=== PATIENT | male | born 1950 | race American Indian/Alaskan Native ===

== ENCOUNTER 2017-05-22 17:47 | Emergency (ER) | payer MEDICARE ==
--- NOTE | 2017-05-22 17:56 | Emergency Department Report ---
Chief Complaint: Altered Mental Status Stated Complaint: AMS Time Seen by Provider: 05/22/17 17:51 - HPI History of Present Illness: PT's was at home with pt and she got called to work around 2 pm and she states that when she returned home at 4 pm, the pt was confused. - ROS Review of Systems: pt denies pain - Exam Physical Exam: PT is alert speech slurred MSE screening note: Focused history and physical exam performed. Due to findings the following was ordered: ct, ekg, labs ED Disposition for MSE Condition: Stable
[2017-05-22 18:16] LABS: Basophils % (Auto) 0.3 % (0.0-1.8); Eosinophils % (Auto) 0.1 % (0.0-4.3); Hematocrit 35.8 % (35.5-45.6); Hemoglobin 12.7 gm/dl (11.8-15.2); Mean Corpuscular HGB Conc 35 % (32-34); Mean Corpuscular Hemoglobin 33 pg (28-32); Mean Corpuscular Volume 92 fl (84-94); Platelet Count 110 K/mm3 (140-440); Red Blood Count 3.87 M/mm3 (3.65-5.03); White Blood Count 9.6 K/mm3 (4.5-11.0)
[2017-05-22 18:26] LABS: INR 0.9 (0.87-1.13)
[2017-05-22 18:27] LABS: Partial Thromboplastin Time 24.2 Sec. (24.2-36.6)
--- NOTE | 2017-05-22 18:28 | Cat Scan Report ---
FINAL REPORT PROCEDURE: CT HEAD/BRAIN WO CON TECHNIQUE: Computerized tomography of the head was performed without contrast material. HISTORY: Stroke symptoms COMPARISON: No prior studies are available for comparison. FINDINGS: There is a large acute left subdural hemorrhage extending along the left frontal, parietal, temporal regions, also extending along the anterior falx and left tentorium. Hemorrhage measures up to 2.7 centimeters in thickness. There is 6 millimeters [id number] midline shift. There is mass effect on the left lateral ventricle. The basilar cisterns are preserved. There may be trace amount of subarachnoid hemorrhage in the left parietotemporal region Stack-white matter interface is preserved. No parenchymal hemorrhage is seen. The intracranial arteries are symmetric in density. No acute fracture is visualized. The paranasal sinuses and mastoids are aerated. IMPRESSION: Large left subdural hemorrhage with mass effect. Findings were discussed by telephone with Dr. Murcia at 5:19 p.m. central standard time on 05/22/2017.
--- NOTE | 2017-05-22 18:42 | Emergency Department Report ---
ED Neuro Deficit HPI - General Chief Complaint: Neuro Symptoms/Deficit Stated Complaint: AMS Time Seen by Provider: 05/22/17 17:51 Source: patient, family Mode of arrival: Ambulatory Limitations: Physical Limitation - History of Present Illness -: hour(s) (4) Location: speech, ataxia Presenting Symptoms: Present: Unable to Speak Clearly, Altered Mental Status History of same: No Place: home Severity: severe Quality: other (wrestling) Improves With: none On Anticoagulants: No (but takes aspirin daily) Context: gradual onset Associated Symptoms: denies other symptoms Treatments Prior to Arrival: none - Related Data Allergies/Adverse Reactions: Allergies Allergy/AdvReac Type Severity Reaction Status Date / Time No Known Allergies Allergy Unverified 05/22/17 17:50 ED Review of Systems ROS: Stated complaint: AMS Other details as noted in HPI Comment: All other systems reviewed and negative Constitutional: weakness Neurological: weakness Hematological/Lymphatic: as per HPI ED Past Medical Hx - Past Medical History Previous Medical History?: Yes Hx Hypertension: Yes Hx Diabetes: Yes Hx Arthritis: Yes - Surgical History Past Surgical History?: Yes Additional Surgical History: Right inquinal hernia repair - Social History Smoking Status: Never Smoker Substance Use Type: Alcohol, Prescribed ED Neuro Physical Exam - General Limitations: Physical Limitation General appearance: lethargic Suspected Stroke: Yes - Head Head exam: Present: atraumatic, normocephalic - Eye Eye exam: Present: normal appearance - ENT ENT exam: Present: normal exam, normal orophraynx - Neck Neck exam: Present: normal inspection - Respiratory Respiratory exam: Present: normal lung sounds bilaterally - Cardiovascular Cardiovascular Exam: Present: regular rate, normal rhythm - GI/Abdominal GI/Abdominal exam: Present: soft - Rectal Rectal exam: Present: deferred - Extremities Exam Extremities exam: Present: normal inspection - Back Exam Back exam: Present: normal inspection - Neurological Exam Neurological exam: Present: alert - NIHSS Assessment Interval: Baseline 1a. Level of Consciousness: alert 1b. LOC Questions: answers correctly 1c. LOC Commands: performs tasks correctly 2. Best Gaze: normal 3. Visual: no visual loss 4. Facial Palsy: normal symmetrical movement 5b. Motor Arm Right: no drift 5a. Motor Arm Left: no drift 6a. Motor Leg Left: no drift 6b. Motor Leg Right: no drift 7. Limb Ataxia: present 2 limbs 8. Sensory: mild/moderate sensory loss 9. Best Language: mild/moderate aphasia 10. Dysarthria: mild/moderate dysarthria 11. Extinction/Inattention: visual/tactile inattention Total Score: 6 Stroke Severity: Moderate Stroke - Psychiatric Psychiatric exam: Present: normal affect, normal mood - Skin Skin exam: Present: warm, dry, intact ED Course Vital Signs 05/22/17 05/22/17 05/22/17 17:50 18:17 18:34 Temperature 99.3 F 99.7 F H Pulse Rate 86 94 H 84 Respiratory 20 13 Rate Blood Pressure 169/104 Blood Pressure 139/83 [Left] O2 Sat by Pulse 100 98 Oximetry - Reevaluation(s) Reevaluation #1: 05/22/17 19:12 Patient remained stable in the ER was accepted at [place] by Dr. Wilkerson. Patient is stable for transfer. Transfer consent obtained from patient's which remained at bedside throughout this hospitalization. - Lab Data Result diagrams: 05/22/17 18:03 05/22/17 18:03 Lab Results 05/22/17 05/22/17 05/22/17 Range/Units 17:53 18:03 18:03 WBC 9.6 (4.5-11.0) K/mm3 RBC 3.87 (3.65-5.03) M/mm3 Hgb 12.7 (11.8-15.2) gm/dl Hct 35.8 (35.5-45.6) % MCV 92 (84-94) fl MCH 33 H (28-32) pg MCHC 35 H (32-34) % RDW 16.0 H (13.2-15.2) % Plt Count 110 L (140-440) K/mm3 Lymph % (Auto) 11.7 L (13.4-35.0) % [place] % (Auto) 6.1 (0.0-7.3) % Eos % (Auto) 0.1 (0.0-4.3) % Baso % (Auto) 0.3 (0.0-1.8) % Lymph # 1.1 L (1.2-5.4) K/mm3 [place] # 0.6 (0.0-0.8) K/mm3 Eos # 0.0 (0.0-0.4) K/mm3 Baso # 0.0 (0.0-0.1) K/mm3 Seg Neutrophils % 81.8 H (40.0-70.0) % Seg Neutrophils # 7.9 H (1.8-7.7) K/mm3 PT 12.1 L (12.2-14.9) Sec. INR 0.90 (0.87-1.13) APTT 24.2 (24.2-36.6) Sec. Thrombin Time 14.8 L (15.1-19.6) Sec. Carbon Dioxide (22-30) mmol/L BUN (9-20) mg/dL Creatinine (0.8-1.5) mg/dL Estimated GFR ml/min BUN/Creatinine Ratio % Glucose (75-100) mg/dL POC Glucose 365 H (70-105) Ketones Quantitative (Negative) Calcium (8.4-10.2) mg/dL Total Bilirubin (0.1-1.2) mg/dL AST (5-40) units/L ALT (7-56) units/L Alkaline Phosphatase (35-129) units/L Total Creatine Kinase (55-170) units/L CK-MB (CK-2) (0.0-4.0) ng/mL CK-MB (CK-2) Rel Index (0-4) Troponin T (0.00-0.029) ng/mL Total Protein (6.3-8.2) g/dL Albumin (3.9-5) g/dL Albumin/Globulin Ratio % 05/22/17 05/22/17 Range/Units 18:03 18:03 WBC (4.5-11.0) K/mm3 RBC (3.65-5.03) M/mm3 Hgb (11.8-15.2) gm/dl Hct (35.5-45.6) % MCV (84-94) fl MCH (28-32) pg MCHC (32-34) % RDW (13.2-15.2) % Plt Count (140-440) K/mm3 Lymph % (Auto) (13.4-35.0) % [place] % (Auto) (0.0-7.3) % Eos % (Auto) (0.0-4.3) % Baso % (Auto) (0.0-1.8) % Lymph # (1.2-5.4) K/mm3 [place] # (0.0-0.8) K/mm3 Eos # (0.0-0.4) K/mm3 Baso # (0.0-0.1) K/mm3 Seg Neutrophils % (40.0-70.0) % Seg Neutrophils # (1.8-7.7) K/mm3 PT (12.2-14.9) Sec. INR (0.87-1.13) APTT (24.2-36.6) Sec. Thrombin Time (15.1-19.6) Sec. Carbon Dioxide 23 (22-30) mmol/L BUN 16 (9-20) mg/dL Creatinine 1.1 (0.8-1.5) mg/dL Estimated GFR > 60 ml/min BUN/Creatinine Ratio 14.54 % Glucose 339 H (75-100) mg/dL POC Glucose (70-105) Ketones Quantitative Negative (Negative) Calcium 9.5 (8.4-10.2) mg/dL Total Bilirubin 0.60 (0.1-1.2) mg/dL AST 21 (5-40) units/L ALT 26 (7-56) units/L Alkaline Phosphatase 68 (35-129) units/L Total Creatine Kinase 213 H (55-170) units/L CK-MB (CK-2) 2.5 (0.0-4.0) ng/mL CK-MB (CK-2) Rel Index 1.1 (0-4) Troponin T < 0.010 (0.00-0.029) ng/mL Total Protein 8.0 (6.3-8.2) g/dL Albumin 4.4 (3.9-5) g/dL Albumin/Globulin Ratio 1.2 % Critical care attestation.: If time is entered above; I have spent that time in minutes in the direct care of this critically ill patient, excluding procedure time. ED Disposition Clinical Impression: Subdural hematoma without coma, Hemorrhagic stroke Disposition: DC/TX-70 ANOTHER TYPE HLTHCARE Is pt being admited?: No Does the pt Need Aspirin: No Condition: Stable
[2017-05-22 19:01] LABS: Creatine Kinase MB 2.5 ng/mL (0.0-4.0)
[2017-05-22 19:02] LABS: Alanine Aminotransferase 26 units/L (7-56); Albumin 4.4 g/dL (3.9-5); Albumin/Globulin Ratio 1.2 %; Alkaline Phosphatase 68 units/L (35-129); Anion Gap 24 mmol/L; BUN/Creatinine Ratio 14.54; Blood Urea Nitrogen 16 mg/dL (9-20); Calcium 9.5 mg/dL (8.4-10.2); Carbon Dioxide 23 mmol/L (22-30); Chloride 85.7 mmol/L (98-107); Creatine Kinase 213 units/L (55-170); Glucose 339 mg/dL (75-100); Potassium 3.8 mmol/L (3.6-5.0); Sodium 129 mmol/L (137-145)
[2017-05-22 20:07] VITALS: BP 132/90
== END 2017-05-22 20:18 | disposition other institution (70) ==
LOC: ED 17:47
DX: I62.00 Nontraumatic subdural hemorrhage, unspecified (principal); I10 Essential (primary) hypertension; E11.9 Type 2 diabetes mellitus without complications; M19.90 Unspecified osteoarthritis, unspecified site
CPT/HCPCS: 36415; 70450; 80053; 82010; 82550; 82553; 82805; 82962; 84484; 85025; 85610; 85670; 85730; 93005; 93010

== ENCOUNTER 2017-11-11 20:22 | Emergency (ER) | payer MEDICARE ==
[2017-11-11] MEDS ORDERED: ATIVAN ONE ×2 (20:29→20:30)
--- NOTE | 2017-11-11 20:43 | Cat Scan Report ---
FINAL REPORT EXAM: CT HEAD/BRAIN WO CON HISTORY: neuro deficits < 6hrs or sx present upon awakening TECHNIQUE: Standard unenhanced CT of the head at 5.0 millimeter axial increments PRIORS: CT head 05/22/2017 FINDINGS: In the interim, the patient has undergone surgical evacuation of a previously seen left subdural hematoma. There are postsurgical changes with plate and screw device is in the left frontal, temporal, and parietal regions consistent with bone flap. There is residual dural thickening present over the left cerebral convexity due to the prior surgery. Small amount of low-density subdural hygroma remains this area as well measuring up to 5 mm in thickness (axial image 36). Otherwise, the ventricular system is normal in size and configuration. There is no evidence for parenchymal volume loss. There is no evidence for mass lesion, mass effect, midline shift, acute intracranial hemorrhage, or acute ischemia/ infarction. Visualized paranasal sinuses are clear. IMPRESSION: 1. No acute intracranial process noted. 2. Surgical changes over the left cerebral convexity due to interval evacuation of a left subdural hematoma. Bony changes are also noted consistent with the surgical procedure. 3. Residual dural thickening on the left with a small low-density adjacent subdural hygroma remains.
[2017-11-11 20:45] LABS: Hematocrit 39.1 % (35.5-45.6); Mean Corpuscular HGB Conc 33 % (32-34); Mean Corpuscular Hemoglobin 30 pg (28-32); Mean Corpuscular Volume 89 fl (84-94); Platelet Count 151 K/mm3 (140-440); Red Blood Count 4.42 M/mm3 (3.65-5.03); Red Cell Distribution Width 15.3 % (13.2-15.2)
--- NOTE | 2017-11-11 20:47 | Emergency Department Report ---
ED Neuro Deficit HPI - General Chief Complaint: Neuro Symptoms/Deficit Stated Complaint: POSS STROKE Time Seen by Provider: 11/11/17 20:37 Source: EMS Mode of arrival: Stretcher Limitations: Other - History of Present Illness Initial Comments: 66 yo male who comes in today due to CVA/stroke-like symptoms. Per the family, the patient started acting abnormal around 7:30 this evening. The son states that his father (the patient) called and was making words that didn't make any sense. The daughter states that the patient started curling up his right upper extremity as if it was bothering him. The patient does have a history of having a CVA and was transferred to [place] for an interventional procedure ( embolectomy). The patient sees Neurology at [place]. -: This evening Location: right arm Presenting Symptoms: Present: Unable to Speak Clearly History of same: Yes Place: home Severity: moderate Quality: other (unable to determine currently due to patient's mental status ) Improves With: none Worsens With: none On Anticoagulants: No Context: other (this evening) Associated Symptoms: confusion, weakness (right upper extremity) Treatments Prior to Arrival: none - Related Data Home Medications: Home Medications Medication Instructions Recorded Confirmed Last Taken Losartan [Cozaar] 100 mg PO QDAY 11/11/17 11/11/17 Unknown Meloxicam 15 mg PO DAILY 11/11/17 11/11/17 Unknown Metformin HCl 1,000 mg PO BID 11/11/17 11/11/17 Unknown Metoprolol Tartrate 50 mg PO BID 11/11/17 11/11/17 Unknown Phenytoin [Dilantin] 300 mg PO QHS 11/11/17 11/11/17 Unknown Pravastatin [Pravachol] 40 mg PO QHS 11/11/17 11/11/17 Unknown Saw [place] Frt/Phytosterol 2 1 each PO DAILY 11/11/17 11/11/17 Unknown [Prostate Sr Softgel] glipiZIDE [Glipizide] 10 mg PO BID 11/11/17 11/11/17 Unknown levETIRAcetam [Keppra TAB] 2,000 mg PO BID 11/11/17 11/11/17 Unknown traMADol [Ultram] 50 mg PO TID 11/11/17 11/11/17 Unknown Allergies/Adverse Reactions: Allergies Allergy/AdvReac Type Severity Reaction Status Date / Time No Known Allergies Allergy Unverified 05/22/17 17:50 ED Review of Systems ROS: Stated complaint: POSS STROKE Other details as noted in HPI Comment: Unobtainable due to pts medical conditions ED Past Medical Hx - Past Medical History Previous Medical History?: Yes Hx Hypertension: Yes Hx Diabetes: Yes Hx Arthritis: Yes - Surgical History Additional Surgical History: Right inquinal hernia repair - Social History Smoking Status: Never Smoker Substance Use Type: Alcohol, Prescribed - Medications Home Medications: Home Medications Medication Instructions Recorded Confirmed Last Taken Type Losartan [Cozaar] 100 mg PO QDAY 11/11/17 11/11/17 Unknown History Meloxicam 15 mg PO DAILY 11/11/17 11/11/17 Unknown History Metformin HCl 1,000 mg PO BID 11/11/17 11/11/17 Unknown History Metoprolol Tartrate 50 mg PO BID 11/11/17 11/11/17 Unknown History Phenytoin [Dilantin] 300 mg PO QHS 11/11/17 11/11/17 Unknown History Pravastatin [Pravachol] 40 mg PO QHS 11/11/17 11/11/17 Unknown History [place] Frt/Phytosterol 2 1 each PO DAILY 11/11/17 11/11/17 Unknown History [Prostate Sr Softgel] glipiZIDE [Glipizide] 10 mg PO BID 11/11/17 11/11/17 Unknown History levETIRAcetam [Keppra TAB] 2,000 mg PO BID 11/11/17 11/11/17 Unknown History traMADol [Ultram] 50 mg PO TID 11/11/17 11/11/17 Unknown History ED Neuro Physical Exam - General Limitations: Other General appearance: postictal Suspected Stroke: Yes - Head Head exam: Present: other (left fully dilated pupil-nonresponsive to light and accomodation ) - Eye Eye exam: Present: other (left fully dilated pupil-unresponsive to light and accomodation ) - ENT ENT exam: Present: mucous membranes moist - Neck Neck exam: Present: normal inspection - Respiratory Respiratory exam: Present: normal lung sounds bilaterally. Absent: respiratory distress - Cardiovascular Cardiovascular Exam: Present: tachycardia - GI/Abdominal GI/Abdominal exam: Present: soft, normal bowel sounds - Extremities Exam Extremities exam: Present: normal inspection - Back Exam Back exam: Present: normal inspection - Neurological Exam Neurological exam: Present: other (somnolent-postictal ) - NIHSS Assessment Interval: 2 hours post treatment (unchanged) 1a. Level of Consciousness: not alert, arousable 1b. LOC Questions: answers no questions correctly 1c. LOC Commands: performs no tasks correctly 2. Best Gaze: partial gaze palsy 3. Visual: no visual loss (left pupil fixed/dilated-baseline per family) 4. Facial Palsy: normal symmetrical movement 5b. Motor Arm Right: no drift 5a. Motor Arm Left: no drift 6a. Motor Leg Left: no drift 6b. Motor Leg Right: no drift 7. Limb Ataxia: absent 8. Sensory: mild/moderate sensory loss 9. Best Language: mild/moderate aphasia 10. Dysarthria: mild/moderate dysarthria 11. Extinction/Inattention: no abnormality Total Score: 9 Stroke Severity: Moderate Stroke - Psychiatric Psychiatric exam: Present: other (somnolent ) - Skin Skin exam: Present: warm, dry, intact, normal color. Absent: rash ED Course Vital Signs 11/11/17 11/11/17 11/11/17 20:40 21:00 21:30 Temperature 98.4 F Pulse Rate 106 H 108 H 110 H Respiratory 17 18 18 Rate Blood Pressure 150/76 137/66 Blood Pressure 150/76 [Right] O2 Sat by Pulse 99 98 Oximetry 11/11/17 11/11/17 11/11/17 22:00 22:30 23:00 Temperature Pulse Rate 112 H 111 H 105 H Respiratory 16 14 14 Rate Blood Pressure 135/67 143/77 136/74 Blood Pressure [Right] O2 Sat by Pulse 100 100 Oximetry - Reevaluation(s) Reevaluation #1: 11/11/17 22:03 CT head negative for any acute pathology currently. Left pupil fully dilated and non responsive to light. Not sure whether it's baseline post CVA, nor does family know. Awaiting labs and evaluation. Reevaluation #2: 11/12/17 00:10 Patient's mental status has improved. He appears to be improving clinically. Dilantin and keppra given. Plan to transfer to [facility] [place] on tonight as [facility] has no beds. - Lab Data Result diagrams: 11/11/17 20:31 11/11/17 20:51 Lab Results 11/11/17 11/11/17 11/11/17 Range/Units 20:31 20:31 20:31 WBC 6.3 (4.5-11.0) K/mm3 RBC 4.42 (3.65-5.03) M/mm3 Hgb 13.0 (11.8-15.2) gm/dl Hct 39.1 (35.5-45.6) % MCV 89 (84-94) fl MCH 30 (28-32) pg MCHC 33 (32-34) % RDW 15.3 H (13.2-15.2) % Plt Count 151 (140-440) K/mm3 Add Manual Diff Complete Total Counted 100 Seg Neuts % (Manual) 47.0 (40.0-70.0) % Band Neutrophils % 0 % Lymphocytes % (Manual) 32.0 (13.4-35.0) % Reactive Lymphs % (Man) 0 % Monocytes % (Manual) 10.0 H (0.0-7.3) % Eosinophils % (Manual) 11.0 H (0.0-4.3) % Basophils % (Manual) 0 (0.0-1.8) % Metamyelocytes % 0 % Myelocytes % 0 % Promyelocytes % 0 % Blast Cells % 0 % Nucleated RBC % Not Reportable Seg Neutrophils # Man 3.0 (1.8-7.7) K/mm3 Band Neutrophils # 0.0 K/mm3 Lymphocytes # (Manual) 2.0 (1.2-5.4) K/mm3 Abs React Lymphs (Man) 0.0 K/mm3 Monocytes # (Manual) 0.6 (0.0-0.8) K/mm3 Eosinophils # (Manual) 0.7 H (0.0-0.4) K/mm3 Basophils # (Manual) 0.0 (0.0-0.1) K/mm3 Metamyelocytes # 0.0 K/mm3 Myelocytes # 0.0 K/mm3 Promyelocytes # 0.0 K/mm3 Blast Cells # 0.0 K/mm3 WBC Morphology Not Reportable Hypersegmented Neuts Not Reportable Hyposegmented Neuts Not Reportable Hypogranular Neuts Not Reportable Smudge Cells Not Reportable Toxic Granulation Not Reportable Toxic Vacuolation Not Reportable Dohle Bodies Not Reportable Pelger-Huet Anomaly Not Reportable Chris Rods Not Reportable Platelet Estimate Consistent w auto Clumped Platelets Not Reportable Plt Clumps, EDTA Not Reportable Large Platelets Not Reportable Giant Platelets Not Reportable Platelet Satelliting Not Reportable Plt Morphology Comment Not Reportable RBC Morphology Not Reportable Dimorphic RBCs Not Reportable Polychromasia Not Reportable Hypochromasia Not Reportable Poikilocytosis Not Reportable Anisocytosis 1+ Microcytosis Not Reportable Macrocytosis Not Reportable Spherocytes Not Reportable Pappenheimer Bodies Not Reportable Sickle Cells Not Reportable Target Cells Not Reportable Tear Drop Cells Not Reportable Ovalocytes Not Reportable Helmet Cells Not Reportable [place] Bodies Not Reportable Eola Rings Not Reportable Rock Cells Not Reportable Bite Cells Not Reportable Crenated Cell Not Reportable Elliptocytes Not Reportable Acanthocytes (Spur) Not Reportable Rouleaux Not Reportable Hemoglobin C Crystals Not Reportable Schistocytes Not Reportable Malaria parasites Not Reportable [place] Bodies Not Reportable Hem Pathologist Commnt No PT (12.2-14.9) Sec. INR (0.87-1.13) APTT (24.2-36.6) Sec. Thrombin Time (15.1-19.6) Sec. Sodium (137-145) mmol/L Potassium (3.6-5.0) mmol/L Chloride (98-107) mmol/L Carbon Dioxide (22-30) mmol/L Anion Gap mmol/L BUN (9-20) mg/dL Creatinine (0.8-1.5) mg/dL Estimated GFR ml/min BUN/Creatinine Ratio % Glucose (75-100) mg/dL Calcium (8.4-10.2) mg/dL Total Bilirubin (0.1-1.2) mg/dL AST (5-40) units/L ALT (7-56) units/L Alkaline Phosphatase (35-129) units/L Total Creatine Kinase (55-170) units/L CK-MB (CK-2) (0.0-4.0) ng/mL CK-MB (CK-2) Rel Index (0-4) Troponin T < 0.010 (0.00-0.029) ng/mL Total Protein (6.3-8.2) g/dL Albumin (3.9-5) g/dL Albumin/Globulin Ratio % Phenytoin 2.3 L (10.0-20.0) ug/mL 11/11/17 11/11/17 11/11/17 Range/Units 20:51 20:51 20:51 WBC (4.5-11.0) K/mm3 RBC (3.65-5.03) M/mm3 Hgb (11.8-15.2) gm/dl Hct (35.5-45.6) % MCV (84-94) fl MCH (28-32) pg MCHC (32-34) % RDW (13.2-15.2) % Plt Count (140-440) K/mm3 Add Manual Diff Total Counted Seg Neuts % (Manual) (40.0-70.0) % Band Neutrophils % % Lymphocytes % (Manual) (13.4-35.0) % Reactive Lymphs % (Man) % Monocytes % (Manual) (0.0-7.3) % Eosinophils % (Manual) (0.0-4.3) % Basophils % (Manual) (0.0-1.8) % Metamyelocytes % % Myelocytes % % Promyelocytes % % Blast Cells % % Nucleated RBC % Seg Neutrophils # Man (1.8-7.7) K/mm3 Band Neutrophils # K/mm3 Lymphocytes # (Manual) (1.2-5.4) K/mm3 Abs React Lymphs (Man) K/mm3 Monocytes # (Manual) (0.0-0.8) K/mm3 Eosinophils # (Manual) (0.0-0.4) K/mm3 Basophils # (Manual) (0.0-0.1) K/mm3 Metamyelocytes # K/mm3 Myelocytes # K/mm3 Promyelocytes # K/mm3 Blast Cells # K/mm3 WBC Morphology Hypersegmented Neuts Hyposegmented Neuts Hypogranular Neuts Smudge Cells Toxic Granulation Toxic Vacuolation Dohle Bodies Pelger-Huet Anomaly Chris Rods Platelet Estimate Clumped Platelets Plt Clumps, EDTA Large Platelets Giant Platelets Platelet Satelliting Plt Morphology Comment RBC Morphology Dimorphic RBCs Polychromasia Hypochromasia Poikilocytosis Anisocytosis Microcytosis Macrocytosis Spherocytes Pappenheimer Bodies Sickle Cells Target Cells Tear Drop Cells Ovalocytes Helmet Cells [place] Bodies Eola Rings [place] Cells Bite Cells Crenated Cell Elliptocytes Acanthocytes (Spur) Rouleaux Hemoglobin C Crystals Schistocytes Malaria parasites Kulwinder Bodies Hem Pathologist Commnt PT 13.0 (12.2-14.9) Sec. INR 0.94 (0.87-1.13) APTT 27.4 (24.2-36.6) Sec. Thrombin Time 15.9 (15.1-19.6) Sec. Sodium 137 (137-145) mmol/L Potassium 4.7 (3.6-5.0) mmol/L Chloride 99.3 (98-107) mmol/L Carbon Dioxide 23 (22-30) mmol/L Anion Gap 19 mmol/L BUN 17 (9-20) mg/dL Creatinine 1.0 (0.8-1.5) mg/dL Estimated GFR > 60 ml/min BUN/Creatinine Ratio 17 % Glucose 260 H (75-100) mg/dL Calcium 8.8 (8.4-10.2) mg/dL Total Bilirubin < 0.20 (0.1-1.2) mg/dL AST 16 (5-40) units/L ALT 17 (7-56) units/L Alkaline Phosphatase 74 (35-129) units/L Total Creatine Kinase (55-170) units/L CK-MB (CK-2) (0.0-4.0) ng/mL CK-MB (CK-2) Rel Index (0-4) Troponin T (0.00-0.029) ng/mL Total Protein 7.5 (6.3-8.2) g/dL Albumin 4.5 (3.9-5) g/dL Albumin/Globulin Ratio 1.5 % Phenytoin (10.0-20.0) ug/mL 11/11/17 Range/Units 20:51 WBC (4.5-11.0) K/mm3 RBC (3.65-5.03) M/mm3 Hgb (11.8-15.2) gm/dl Hct (35.5-45.6) % MCV (84-94) fl MCH (28-32) pg MCHC (32-34) % RDW (13.2-15.2) % Plt Count (140-440) K/mm3 Add Manual Diff Total Counted Seg Neuts % (Manual) (40.0-70.0) % Band Neutrophils % % Lymphocytes % (Manual) (13.4-35.0) % Reactive Lymphs % (Man) % Monocytes % (Manual) (0.0-7.3) % Eosinophils % (Manual) (0.0-4.3) % Basophils % (Manual) (0.0-1.8) % Metamyelocytes % % Myelocytes % % Promyelocytes % % Blast Cells % % Nucleated RBC % Seg Neutrophils # Man (1.8-7.7) K/mm3 Band Neutrophils # K/mm3 Lymphocytes # (Manual) (1.2-5.4) K/mm3 Abs React Lymphs (Man) K/mm3 Monocytes # (Manual) (0.0-0.8) K/mm3 Eosinophils # (Manual) (0.0-0.4) K/mm3 Basophils # (Manual) (0.0-0.1) K/mm3 Metamyelocytes # K/mm3 Myelocytes # K/mm3 Promyelocytes # K/mm3 Blast Cells # K/mm3 WBC Morphology Hypersegmented Neuts Hyposegmented Neuts Hypogranular Neuts Smudge Cells Toxic Granulation Toxic Vacuolation Dohle Bodies Pelger-Huet Anomaly Chris Rods Platelet Estimate Clumped Platelets Plt Clumps, EDTA Large Platelets Giant Platelets Platelet Satelliting Plt Morphology Comment RBC Morphology Dimorphic RBCs Polychromasia Hypochromasia Poikilocytosis Anisocytosis Microcytosis Macrocytosis Spherocytes Pappenheimer Bodies Sickle Cells Target Cells Tear Drop Cells Ovalocytes Helmet Cells [place] Bodies Eola Rings [place] Cells Bite Cells Crenated Cell Elliptocytes Acanthocytes (Spur) Rouleaux Hemoglobin C Crystals Schistocytes Malaria parasites Kulwinder Bodies Hem Pathologist Commnt PT (12.2-14.9) Sec. INR (0.87-1.13) APTT (24.2-36.6) Sec. Thrombin Time (15.1-19.6) Sec. Sodium (137-145) mmol/L Potassium (3.6-5.0) mmol/L Chloride (98-107) mmol/L Carbon Dioxide (22-30) mmol/L Anion Gap mmol/L BUN (9-20) mg/dL Creatinine (0.8-1.5) mg/dL Estimated GFR ml/min BUN/Creatinine Ratio % Glucose (75-100) mg/dL Calcium (8.4-10.2) mg/dL Total Bilirubin (0.1-1.2) mg/dL AST (5-40) units/L ALT (7-56) units/L Alkaline Phosphatase (35-129) units/L Total Creatine Kinase 237 H (55-170) units/L CK-MB (CK-2) 4.4 H (0.0-4.0) ng/mL CK-MB (CK-2) Rel Index 1.8 (0-4) Troponin T (0.00-0.029) ng/mL Total Protein (6.3-8.2) g/dL Albumin (3.9-5) g/dL Albumin/Globulin Ratio % Phenytoin (10.0-20.0) ug/mL - EKG Data -: EKG Interpreted by Me EKG shows normal: sinus rhythm Rate: tachycardia (108) When compared to previous EKG there are: no significant change (Compared to 2016) Interpretation: no acute changes, nonspecific ST-T wave michelle - Radiology Data Radiology results: report reviewed (negative head ct, chest radiograph) - Medical Decision Making CVA/TIA Medication non-compliance Seizure disorder Hx of left subdural hematoma - Differential Diagnosis CVA/TIA, medication non-compliance, seizure disorder, hx of left subdural - Core Measures AMI Core Measures Followed: Yes Measure Exclusions: not indicated - Thrombolytic Inclusion/Exclusion Thrombolytic Exclusion Criteria: Symptom Onset > 3 Hours Thrombolytic Inclusion Criteria: Negative CT Scan for ICH Thrombolytic Contraindications: Stroke in Past 3 Months (hx of subdural hematoma ) Critical care attestation.: If time is entered above; I have spent that time in minutes in the direct care of this critically ill patient, excluding procedure time. ED Disposition Clinical Impression: CVA (cerebral vascular accident), TIA (transient ischemic attack), Seizure disorder, Noncompliance with medication regimen Disposition: DC/TX-70 ANOTHER TYPE HLTHCARE Is pt being admited?: Yes Does the pt Need Aspirin: No Condition: Stable Additional Instructions: Patient to be transferred to [facility] care of Dr. Rico-ED. Patient is clinically stable currently. Referrals: RAMÓN LÓPEZ MD [Primary Care Provider] - 3-5 Days Time of Disposition: 00:44
[2017-11-11 21:17] LABS: Basophils % (Manual) 0 % (0.0-1.8); Total Cells Counted 100
[2017-11-11 21:17] LABS: INR 0.94 (0.87-1.13)
[2017-11-11 21:18] LABS: Partial Thromboplastin Time 27.4 Sec. (24.2-36.6)
[2017-11-11 21:18] LABS: Anisocytosis 1+; Platelet Estimate Consistent w Auto
--- NOTE | 2017-11-11 21:26 | XRay Report ---
FINAL REPORT EXAM: XR CHEST 1V AP HISTORY: chest pain TECHNIQUE: AP portable view of the chest PRIORS: None. FINDINGS: Lines, tubes, and devices: N/A Lungs and pleura: Trachea is normal in position. Lungs are clear of infiltrate, pleural effusion, vascular congestion, or pneumothorax. Cardiomediastinal silhouette: Cardiac and mediastinal silhouettes are unremarkable. Other: Bony structures are intact. IMPRESSION: No acute cardiopulmonary process seen.
[2017-11-11 21:29] LABS: Creatine Kinase MB 4.4 ng/mL (0.0-4.0)
[2017-11-11 21:30] LABS: Alanine Aminotransferase 17 units/L (7-56); Albumin 4.5 g/dL (3.9-5); BUN/Creatinine Ratio 17; Blood Urea Nitrogen 17 mg/dL (9-20); Calcium 8.8 mg/dL (8.4-10.2); Hemolysis Index 13
[2017-11-11] MEDS ORDERED: ATIVAN IV ONE (21:32)
[2017-11-11] MEDS ORDERED: DILANTIN 1,000 MG in NACL 0.9% 250ML 250 ML IV ONE (22:16)
[2017-11-11] MEDS ORDERED: KEPPRA 1,000 MG/NS 0.75% 100ML 1,000 MG/100 ML BAG IV ONE (22:17)
[2017-11-11] MEDS ORDERED: NACL 0.9% 1000 ML 1,000 ML IV SCH (23:00)
[2017-11-12 02:06] VITALS: BP 100/49
== END 2017-11-12 02:15 | disposition other institution (70) ==
LOC: ED 20:22
DX: I63.8 Other cerebral infarction (principal); G45.8 Other transient cerebral ischemic attacks and related syndromes; G40.909 Epilepsy, unspecified, not intractable, without status epilepticus; I10 Essential (primary) hypertension; M19.90 Unspecified osteoarthritis, unspecified site; E11.9 Type 2 diabetes mellitus without complications
CPT/HCPCS: 36415; 70450; 71045; 80053; 80185; 82550; 82553; 82962; 84484; 85007; 85025; 85610; 85670; 85730; 93005; 93010; 96365; 96375; 99285; J1165; J1953; J2060; J7030; J7050; J1815

== ENCOUNTER 2019-01-02 20:06 | Inpatient (IN) | payer MEDICARE ==
--- NOTE | 2019-01-02 20:22 | Emergency Department Report ---
ED Neuro Deficit HPI - General Chief Complaint: Neuro Symptoms/Deficit Stated Complaint: POSS STROKE Time Seen by Provider: 01/02/19 20:10 Source: EMS Mode of arrival: Stretcher Limitations: No Limitations - History of Present Illness Initial Comments: 68-year-old male with history of CVA in the past who presents to ED with onset of altered mental status sided weakness. States he lives on patient normal around 5:30 PM, states he returned home at 6:30 PM and the patient and was weak and altered. Son states patient was shaking somewhat, like he does when his sugar gets low. Patient does have a history of seizures. I asked his son if the movements appeared to be a seizure, patient states he was not sure. Family states patient did not have any deficits from his previous CVAs. 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 Last Observed Normal: 17:30 Location: speech, right arm, right leg Presenting Symptoms: Present: Weak/Paralyzed One Side, Unable to Speak Clearly, Altered Mental Status History of same: Yes Place: home Severity: moderate Improves With: none Worsens With: none Treatments Prior to Arrival: none - Related Data Home Medications: Home Medications Medication Instructions Recorded Confirmed Last Taken Losartan [Cozaar] 100 mg PO QDAY 11/11/17 01/02/19 Unknown glipiZIDE [Glipizide] 10 mg PO BID 11/11/17 01/02/19 Unknown traMADol [Ultram] 50 mg PO TID 11/11/17 01/02/19 Unknown Atenolol [Tenormin] 100 mg PO DAILY 01/02/19 01/02/19 Unknown Ibuprofen 1 tab PO Q8HR PRN 01/02/19 01/02/19 Unknown Allergies/Adverse Reactions: Allergies Allergy/AdvReac Type Severity Reaction Status Date / Time No Known Allergies Allergy Unverified 05/22/17 17:50 ED Review of Systems ROS: Stated complaint: POSS STROKE Other details as noted in HPI Comment: Unobtainable due to pts medical conditions (altered mental status) ED Past Medical Hx - Past Medical History Hx Hypertension: Yes Hx CVA: Yes Hx Diabetes: Yes Hx Arthritis: Yes - Surgical History Additional Surgical History: Right inquinal hernia repair - Social History Smoking Status: Unknown if ever smoked - Medications Home Medications: Home Medications Medication Instructions Recorded Confirmed Last Taken Type Losartan [Cozaar] 100 mg PO QDAY 11/11/17 01/02/19 Unknown History glipiZIDE [Glipizide] 10 mg PO BID 11/11/17 01/02/19 Unknown History traMADol [Ultram] 50 mg PO TID 11/11/17 01/02/19 Unknown History Atenolol [Tenormin] 100 mg PO DAILY 01/02/19 01/02/19 Unknown History Ibuprofen 1 tab PO Q8HR PRN 01/02/19 01/02/19 Unknown History ED Neuro Physical Exam - General Limitations: No Limitations General appearance: alert Suspected Stroke: Yes - Head Head exam: Present: atraumatic, normocephalic - Eye Pupils: Present: irregular - ENT ENT exam: Present: mucous membranes moist - Neck Neck exam: Present: normal inspection - Respiratory Respiratory exam: Present: normal lung sounds bilaterally. Absent: respiratory distress - Cardiovascular Cardiovascular Exam: Present: regular rate, normal rhythm - GI/Abdominal GI/Abdominal exam: Present: soft. Absent: distended, tenderness - Extremities Exam Extremities exam: Present: normal inspection - Neurological Exam Neurological exam: Present: alert, altered, motor sensory deficit. Absent: CN II-XII intact - NIHSS Assessment Interval: Baseline 1a. Level of Consciousness: alert/keenly responsive 1b. LOC Questions: aphasic 1c. LOC Commands: performs 1 task correctly 2. Best Gaze: normal 3. Visual: partial hemianopia 4. Facial Palsy: partial paralysis 5b. Motor Arm Right: no movement 5a. Motor Arm Left: no drift 6a. Motor Leg Left: drift 6b. Motor Leg Right: no movement 7. Limb Ataxia: absent 8. Sensory: normal 9. Best Language: mute/global aphasia 10. Dysarthria: mute/anarrthric 11. Extinction/Inattention: no abnormality Total Score: 20 Stroke Severity: Moderate to Severe Stroke - Psychiatric Psychiatric exam: Present: normal affect, normal mood - Skin Skin exam: Present: warm, dry, intact, normal color. Absent: rash ED Course Vital Signs 01/02/19 01/02/19 01/02/19 20:15 20:33 20:45 Temperature 98.2 F Pulse Rate 89 96 H 92 H Respiratory 12 13 16 Rate Blood Pressure 130/81 130/72 179/97 [Right] O2 Sat by Pulse 94 92 99 Oximetry 01/02/19 01/02/19 01/02/19 21:00 21:20 21:35 Temperature Pulse Rate 98 H 98 H 98 H Respiratory 19 21 20 Rate Blood Pressure 183/104 168/89 127/66 [Right] O2 Sat by Pulse 98 97 91 Oximetry 01/02/19 01/02/19 01/02/19 22:23 23:00 23:16 Temperature 97.8 F Pulse Rate 103 H 98 H Respiratory 16 18 18 Rate Blood Pressure 127/66 123/74 [Right] O2 Sat by Pulse 96 100 100 Oximetry - Reevaluation(s) Reevaluation #1: 01/02/19 22:07 Went in for re-evaluation of patient. Was speaking w/ pt's and patient began having rightward deviation of eyes and subtle muscle fasiculations in upper extremities. Also felt clammy and began to drool. Accucheck was done and found to be nml. Ativan 2 mg given for possible seizure. Gaze deviation resolved following ativan administration. - Consultations Consultation #1: 01/02/19 21:01 Pt evaluated by neurologist, Dr Ibrahim. Pt has hx of hemorrhagic CVA. Not a tPA candidate. Recommends CTA Head/Neck and Keppra load due to seizure hx 01/02/19 22:27 Informed neurologist of negative CTA and recent seizure while Keppra was infusing. Will admit to hospitalist. - Lab Data Result diagrams: 01/02/19 20:31 01/02/19 20:31 Lab Results 01/02/19 01/02/19 01/02/19 Range/Units 20:31 20:31 20:31 WBC 5.1 (4.5-11.0) K/mm3 RBC 4.14 (3.65-5.03) M/mm3 Hgb 12.8 (11.8-15.2) gm/dl Hct 36.4 (35.5-45.6) % MCV 88 (84-94) fl MCH 31 (28-32) pg MCHC 35 H (32-34) % RDW 13.6 (13.2-15.2) % Plt Count 133 L (140-440) K/mm3 Lymph % (Auto) 33.9 (13.4-35.0) % [place] % (Auto) 5.0 (0.0-7.3) % Eos % (Auto) 14.3 H (0.0-4.3) % Baso % (Auto) 0.8 (0.0-1.8) % Lymph # 1.7 (1.2-5.4) K/mm3 Kern # 0.3 (0.0-0.8) K/mm3 Eos # 0.7 H (0.0-0.4) K/mm3 Baso # 0.0 (0.0-0.1) K/mm3 Seg Neutrophils % 46.0 (40.0-70.0) % Seg Neutrophils # 2.3 (1.8-7.7) K/mm3 PT 13.1 (12.2-14.9) Sec. INR 0.94 (0.87-1.13) APTT 25.8 (24.2-36.6) Sec. Thrombin Time (15.1-19.6) Sec. Sodium 133 L (137-145) mmol/L Potassium 3.7 (3.6-5.0) mmol/L Chloride 97.5 L (98-107) mmol/L Carbon Dioxide 25 (22-30) mmol/L Anion Gap 14 mmol/L BUN 23 H (9-20) mg/dL Creatinine 0.9 (0.8-1.5) mg/dL Estimated GFR > 60 ml/min BUN/Creatinine Ratio 26 % Glucose 195 H (75-100) mg/dL POC Glucose (70-105) Calcium 9.4 (8.4-10.2) mg/dL Troponin T 0.025 (0.00-0.029) ng/mL Urine Color (Yellow) Urine Turbidity (Clear) Urine pH (5.0-7.0) Ur Specific [place] (1.003-1.030) Urine Protein (Negative) mg/dL Urine Glucose (UA) (Negative) mg/dL Urine Ketones (Negative) mg/dL Urine Blood (Negative) Urine Nitrite (Negative) Urine Bilirubin (Negative) Urine Urobilinogen (<2.0) mg/dL Ur Leukocyte Esterase (Negative) Urine WBC (Auto) (0.0-6.0) /HPF Urine RBC (Auto) (0.0-6.0) /HPF Phenytoin (10.0-20.0) ug/mL 01/02/19 01/02/19 01/02/19 Range/Units 20:31 20:49 22:06 WBC (4.5-11.0) K/mm3 RBC (3.65-5.03) M/mm3 Hgb (11.8-15.2) gm/dl Hct (35.5-45.6) % MCV (84-94) fl MCH (28-32) pg MCHC (32-34) % RDW (13.2-15.2) % Plt Count (140-440) K/mm3 Lymph % (Auto) (13.4-35.0) % [place] % (Auto) (0.0-7.3) % Eos % (Auto) (0.0-4.3) % Baso % (Auto) (0.0-1.8) % Lymph # (1.2-5.4) K/mm3 [place] # (0.0-0.8) K/mm3 Eos # (0.0-0.4) K/mm3 Baso # (0.0-0.1) K/mm3 Seg Neutrophils % (40.0-70.0) % Seg Neutrophils # (1.8-7.7) K/mm3 PT (12.2-14.9) Sec. INR (0.87-1.13) APTT (24.2-36.6) Sec. Thrombin Time 16.9 (15.1-19.6) Sec. Sodium (137-145) mmol/L Potassium (3.6-5.0) mmol/L Chloride (98-107) mmol/L Carbon Dioxide (22-30) mmol/L Anion Gap mmol/L BUN (9-20) mg/dL Creatinine (0.8-1.5) mg/dL Estimated GFR ml/min BUN/Creatinine Ratio % Glucose (75-100) mg/dL POC Glucose 194 H (70-105) Calcium (8.4-10.2) mg/dL Troponin T (0.00-0.029) ng/mL Urine Color Straw (Yellow) Urine Turbidity Clear (Clear) Urine pH 6.0 (5.0-7.0) Ur Specific [place] 1.009 (1.003-1.030) Urine Protein <15 mg/dl (Negative) mg/dL Urine Glucose (UA) Neg (Negative) mg/dL Urine Ketones Neg (Negative) mg/dL Urine Blood Neg (Negative) Urine Nitrite Neg (Negative) Urine Bilirubin Neg (Negative) Urine Urobilinogen < 2.0 (<2.0) mg/dL Ur Leukocyte Esterase Neg (Negative) Urine WBC (Auto) < 1.0 (0.0-6.0) /HPF Urine RBC (Auto) < 1.0 (0.0-6.0) /HPF Phenytoin (10.0-20.0) ug/mL 01/02/19 Range/Units 22:47 WBC (4.5-11.0) K/mm3 RBC (3.65-5.03) M/mm3 Hgb (11.8-15.2) gm/dl Hct (35.5-45.6) % MCV (84-94) fl MCH (28-32) pg MCHC (32-34) % RDW (13.2-15.2) % Plt Count (140-440) K/mm3 Lymph % (Auto) (13.4-35.0) % [place] % (Auto) (0.0-7.3) % Eos % (Auto) (0.0-4.3) % Baso % (Auto) (0.0-1.8) % Lymph # (1.2-5.4) K/mm3 [place] # (0.0-0.8) K/mm3 Eos # (0.0-0.4) K/mm3 Baso # (0.0-0.1) K/mm3 Seg Neutrophils % (40.0-70.0) % Seg Neutrophils # (1.8-7.7) K/mm3 PT (12.2-14.9) Sec. INR (0.87-1.13) APTT (24.2-36.6) Sec. Thrombin Time (15.1-19.6) Sec. Sodium (137-145) mmol/L Potassium (3.6-5.0) mmol/L Chloride (98-107) mmol/L Carbon Dioxide (22-30) mmol/L Anion Gap mmol/L BUN (9-20) mg/dL Creatinine (0.8-1.5) mg/dL Estimated GFR ml/min BUN/Creatinine Ratio % Glucose (75-100) mg/dL POC Glucose (70-105) Calcium (8.4-10.2) mg/dL Troponin T (0.00-0.029) ng/mL Urine Color (Yellow) Urine Turbidity (Clear) Urine pH (5.0-7.0) Ur Specific [place] (1.003-1.030) Urine Protein (Negative) mg/dL Urine Glucose (UA) (Negative) mg/dL Urine Ketones (Negative) mg/dL Urine Blood (Negative) Urine Nitrite (Negative) Urine Bilirubin (Negative) Urine Urobilinogen (<2.0) mg/dL Ur Leukocyte Esterase (Negative) Urine WBC (Auto) (0.0-6.0) /HPF Urine RBC (Auto) (0.0-6.0) /HPF Phenytoin 4.1 L (10.0-20.0) ug/mL - Radiology Data Radiology results: report reviewed, image reviewed - Medical Decision Making 68-year-old male presents to ED with aphasia and right-sided weakness. Questionable seizure onset. Also history of intracranial bleed. Due to these 2 factors, TPA is contraindicated. The patient has seizure here in the ED, for which Ativan was given. CT head was negative for hemorrhage, CTA head and neck negative for any large vessel occlusion. Patient loaded with keppra. Family states patient has been compliant with all of his medications. Patient admitted to Dr. Schumacher, hospitalist, for further workup. - Differential Diagnosis ischemic CVA, hemorrhagic CVA, seizure w/ Josue's paralysis - Thrombolytic Inclusion/Exclusion Thrombolytic Contraindications: Hx of ICH/AVM/Aneurysms, Seizure at Onset Critical Care Time: Yes Critical care time in (mins) excluding proc time.: 60 Critical care attestation.: If time is entered above; I have spent that time in minutes in the direct care of this critically ill patient, excluding procedure time. Critical Care Time: 60 minutes ED Disposition Clinical Impression: CVA (cerebral vascular accident), Seizure Disposition: [id number] OP ADMIT IP TO THIS HOSP Is pt being admited?: Yes Condition: Critical Time of Disposition: 22:27
--- NOTE | 2019-01-02 20:26 | Cat Scan Report ---
FINAL REPORT PROCEDURE: CT HEAD/BRAIN WO CON TECHNIQUE: Computerized tomography of the head was performed without contrast material. HISTORY: neuro deficits < 6hrs or sx present upon awakening COMPARISON: 11/11/2017 FINDINGS: There has been prior left frontoparietal craniotomy. There is no CT evidence of acute intracranial he morrhage, mass, hydrocephalus, or acute territorial infarction. There is chronic left dural thickenin g. The intracranial arteries are symmetric in density. IMPRESSION: No CT evidence of acute intracranial abnormality
[2019-01-02 20:40] LABS: Basophils % (Auto) 0.8 % (0.0-1.8); Eosinophils # (Auto) 0.7 K/mm3 (0.0-0.4); Eosinophils % (Auto) 14.3 % (0.0-4.3); Hematocrit 36.4 % (35.5-45.6); Hemoglobin 12.8 gm/dl (11.8-15.2); Lymphocytes # (Auto) 1.7 K/mm3 (1.2-5.4); Lymphocytes % (Auto) 33.9 % (13.4-35.0); Mean Corpuscular HGB Conc 35 % (32-34); Mean Corpuscular Volume 88 fl (84-94); Monocytes # (Auto) 0.3 K/mm3 (0.0-0.8); Platelet Count 133 K/mm3 (140-440); Red Blood Count 4.14 M/mm3 (3.65-5.03); Red Cell Distribution Width 13.6 % (13.2-15.2)
[2019-01-02 20:49] LABS: INR 0.94 (0.87-1.13)
[2019-01-02 20:50] LABS: Partial Thromboplastin Time 25.8 Sec. (24.2-36.6)
[2019-01-02 20:52] LABS: BUN/Creatinine Ratio 26; Blood Urea Nitrogen 23 mg/dL (9-20); Calcium 9.4 mg/dL (8.4-10.2); Hemolysis Index 5
[2019-01-02] MEDS ORDERED: KEPPRA 1,000 MG in NACL 0.9% 100 ML IV ONE (21:00)
[2019-01-02 21:59] LABS: Bilirubin,Urine NEG (Negative); Blood,Urine NEG (Negative); Color,Urine Straw (Yellow); Protein,Urine <15 mg/dL mg/dL (Negative); Urobilinogen,Urine < 2.0 mg/dL (<2.0); WBC,Urine < 1.0 /HPF (0.0-6.0)
[2019-01-02] MEDS ORDERED: KEPPRA 1,000 MG/NS 0.75% 100ML 1,000 MG/100 ML BAG IV ONE (22:00)
[2019-01-02] MEDS ORDERED: ATIVAN IV ONE (22:00)
[2019-01-02] MEDS ORDERED: ATIVAN ONE (22:03)
[2019-01-02 22:06] LABS: RBC,Urine < 1.0 /HPF (0.0-6.0)
--- NOTE | 2019-01-02 22:18 | Cat Scan Report ---
FINAL REPORT PROCEDURE: CT ANGIO HEAD TECHNIQUE: Computerized tomographic angiography of the head was performed after the IV injection of iodinated nonionic contrast including image processing. The image data was postprocessed using 2-dime nsional multiplanar reformatted (MPR) and 3-dimensional (MIP and/or volume rendered) techniques. HISTORY: poss cva COMPARISON: No prior studies are available for comparison. FINDINGS: Intracranial vessels: Carotid siphon: There is atherosclerotic calcification of bilateral cavernous carotid arteries Anterior cerebral: Normal. Middle cerebral: Normal. Posterior cerebral:Normal. Vertebral arteries including basilar: Normal. Aneurysms: None. Dural sinuses: Normal. IMPRESSION: No arterial occlusion or focal stenosis
--- NOTE | 2019-01-02 22:32 | Cat Scan Report ---
FINAL REPORT PROCEDURE: CT ANGIO NECK TECHNIQUE: Computerized tomographic angiography of the neck was performed after the IV injection of iodinated nonionic contrast including image processing. The image data was postprocessed using 2-dime nsional multiplanar reformatted (MPR) and 3-dimensional (MIP and/or volume rendered) techniques. HISTORY: poss cva COMPARISON: No prior studies are available for comparison. Note: Assessment of carotid artery stenosis is based on measurement of the distal internal carotid a rtery diameter as the denominator for stenosis calculations and the [place] Symptomatic Caroti d Endarterectomy Trial (NASCET) stenosis criteria . CPT 3100F FINDINGS: Degenerative changes of the cervical spine are noted Aortic arch: Minimal atherosclerotic calcification. Right carotid artery: There is mild atherosclerotic calcification at the origin of the internal carot id artery. No significant stenosis. Left carotid artery: Normal . Vertebral arteries: Normal . IMPRESSION: No occlusion or significant stenosis
--- NOTE | 2019-01-02 23:00 | History and Physical Report ---
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 In the emergency room he had a seizure, IV Ativan and Keppra was given, he still sedated. History is per the at bedside. 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, hypertension, diabetes, seizure PAST SURGICAL HISTORY: Hernia repair SOCIAL HISTORY: Denies alcohol, drugs, tobacco FAMILY HISTORY: Hypertension Medications and Allergies Allergies Allergy/AdvReac Type Severity Reaction Status Date / Time No Known Allergies Allergy Unverified 05/22/17 17:50 Home Medications Medication Instructions Recorded Confirmed Last Taken Type Losartan [Cozaar] 100 mg PO QDAY 11/11/17 01/02/19 Unknown History glipiZIDE [Glipizide] 10 mg PO BID 11/11/17 01/02/19 Unknown History traMADol [Ultram] 50 mg PO TID 11/11/17 01/02/19 Unknown History Atenolol [Tenormin] 100 mg PO DAILY 01/02/19 01/02/19 Unknown History Ibuprofen 1 tab PO Q8HR PRN 01/02/19 01/02/19 Unknown History Exam - Physical Exam Narrative exam: General Apperance: The patient lying in bed, breathing comfortable HEENT: Normocephalic, atraumatic. Pupils equally round and reactive to light, unable to do EOM, no sclericterus or JVD or thyromegaly or nodule. , no carotid bruit, mucous membranes moist, no exudate or erythema Heart: S1-S2, regular is rhythm Lungs: Clear to auscultation bilaterally anteriorly, breathing comfortable Abdomen: Positive bowel sounds, soft, nontender, nondistended, no organomegaly Extremities: No edema cyanosis clubbing Skin: no rash, nodule, warm and dry Neuro: sedated - Constitutional Vitals: Temp Pulse Resp BP Pulse Ox 98.2 F 103 H 16 127/66 96 01/02/19 20:15 01/02/19 22:23 01/02/19 22:23 01/02/19 22:23 01/02/19 22:23 Results - Labs CBC & Chem 7: 01/02/19 20:31 01/02/19 20:31 Labs: Abnormal lab results 01/02/19 01/02/19 01/02/19 Range/Units 20:31 20:31 22:06 MCHC 35 H (32-34) % Plt Count 133 L (140-440) K/mm3 Eos % (Auto) 14.3 H (0.0-4.3) % Eos # 0.7 H (0.0-0.4) K/mm3 Sodium 133 L (137-145) mmol/L Chloride 97.5 L (98-107) mmol/L BUN 23 H (9-20) mg/dL Glucose 195 H (75-100) mg/dL POC Glucose 194 H (70-105) - Imaging and Cardiology EKG: image reviewed CT Scan - head: report reviewed Assessment and Plan CTA head and neck reviewed Assessment Acute CVA Hypertension Seizure, acute on chronic Diabetes Previous CVA, /SDH Plan Admit medicine Obtain MRI of the head, start IV fluid Nothing by mouth until swallow evaluation Obtain MRI of the head, neuro evaluation Consult PT and OT Hold statin, and aspirin until swallow eval IV Ativan as needed for seizure Check fingersticks, start IV fluids DVT prophylaxis, neuro to decide on lovenox given recent SDH
[2019-01-02] MEDS ORDERED: ZOFRAN IV PRN (23:13)
[2019-01-02] MEDS ORDERED: SODIUM CHLORIDE FLUSH SYRINGE 10 ML IV PRN (23:13)
[2019-01-03 06:00] LABS: Chol/HDL Ratio 2.89 %
[2019-01-03] MEDS ORDERED: D5/0.45NS 1,000 ML IV SCH (07:30)
--- NOTE | 2019-01-03 10:06 | Magnetic Resonance Report ---
MRI OF THE BRAIN WITHOUT CONTRAST: HISTORY: Stroke PROCEDURE: Multiplanar, multisequence MR imaging of the brain without IV contrast was performed. FINDINGS: Mild diffuse cortical volume loss is identified. A focal chronic cortical infarct is identified in the left parietal cortex measuring up to 2 cm. The remaining brain parenchyma signal intensity and its ortiz white interface are within normal limits on all sequences. No evidence for acute ischemia, hemorrhage or mass. No extra-axial fluid collection. The midline structures are central. The basal cisterns are patent. Normal ventricular size. The orbital cavities and sella turcica demonstrate no abnormality. The visualized paranasal sinuses and mastoid air cells are well aerated. Left craniotomy changes are noted. Please correlate with history. IMPRESSION: No acute intracranial process is identified. Previous left craniotomy changes. Mild volume loss. Focal chronic cortical infarct in the left parietal lobe.
--- NOTE | 2019-01-03 10:36 | Progress Note ---
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 In the emergency room he had a seizure, IV Ativan and Keppra was given, he still sedated. History is per the at bedside. 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 His speech is not making sense. He is calm, and he is able to be redirected Review of systems Constitutional: No fevers, no malaise, no joint pains CVS: No chest pain, no orthopnea, no dyspnea on exertion, no pedal edema GI: No abdominal pain, no diarrhea, no vomiting, no constipation Respiratory: No shortness of breath, no wheezing, no coughing Hospitalist Physical - Physical exam Narrative exam: General.: Appears well, no distress, nontoxic HEENT: Moist mucous membranes, extraocular muscles intact, no lymphadenopathy Neck: supple Cardiac: S1-S2 heard Lungs: clear to auscultation bilaterally Abdomen: soft , nontender, nondistended, bowel sounds positive Extremities: no edema clubbing or cyanosis Skin: no rash or lesions Neurologic: no gross focal deficits, he is confused and delirious Psych: calm, and cooperative - Constitutional Vitals: Temp Pulse Resp BP Pulse Ox 99.0 F 100 H 18 118/69 100 01/03/19 07:53 01/03/19 07:53 01/03/19 07:53 01/03/19 07:53 01/03/19 07:53 Results - Labs CBC & Chem 7: 01/02/19 20:31 01/02/19 20:31 Labs: Laboratory Last Values WBC 5.1 K/mm3 (4.5-11.0) 01/02/19 20: RBC 4.14 M/mm3 (3.65-5.03) 01/02/19 20: Hgb 12.8 gm/dl (11.8-15.2) 01/02/19 20: Hct 36.4 % (35.5-45.6) 01/02/19 20: MCV 88 fl (84-94) 01/02/19 20: MCH 31 pg (28-32) 01/02/19 20: MCHC 35 % (32-34) H 01/02/19 20: RDW 13.6 % (13.2-15.2) 01/02/19: Plt Count 133 K/mm3 (140-440) L 01/02/19 20: Lymph % (Auto) 33.9 % (13.4-35.0) 01/02/19: [place] % (Auto) 5.0 % (0.0-7.3) 01/02/19: Eos % (Auto) 14.3 % (0.0-4.3) H 01/02/19 20: Baso % (Auto) 0.8 % (0.0-1.8) 01/02/19: Lymph # 1.7 K/mm3 (1.2-5.4) 01/02/19 20: [place] # 0.3 K/mm3 (0.0-0.8) 01/02/19: Eos # 0.7 K/mm3 (0.0-0.4) H 01/02/19 20: Baso # 0.0 K/mm3 (0.0-0.1) 01/02/19 20: Seg Neutrophils % 46.0 % (40.0-70.0) 01/02/19: Seg Neutrophils # 2.3 K/mm3 (1.8-7.7) 01/02/19 20: PT 13.1 Sec. (12.2-14.9) 01/02/19 20: INR 0.94 (0.87-1.13) 01/02/19 20: APTT 25.8 Sec. (24.2-36.6) 01/02/19 20:31 Thrombin Time 16.9 Sec. (15.1-19.6) 01/02/19 20:31 Sodium 133 mmol/L (137-145) L 01/02/19 20:31 Potassium 3.7 mmol/L (3.6-5.0) 01/02/19 20:31 Chloride 97.5 mmol/L (98-107) L 01/02/19 20:31 Carbon Dioxide 25 mmol/L (22-30) 01/02/19 20:31 Anion Gap 14 mmol/L 01/02/19 20:31 BUN 23 mg/dL (9-20) H 01/02/19 20:31 Creatinine 0.9 mg/dL (0.8-1.5) 01/02/19 20:31 Estimated GFR > 60 ml/min 01/02/19 20:31 BUN/Creatinine Ratio 26 % 01/02/19 20:31 Glucose 195 mg/dL (75-100) H 01/02/19 20:31 POC Glucose 72 (70-105) 01/03/19 07:09 Calcium 9.4 mg/dL (8.4-10.2) 01/02/19 20:31 Troponin T 0.025 ng/mL (0.00-0.029) 01/02/19 20:31 Triglycerides 91 mg/dL (2-149) 01/03/19 04:48 Cholesterol 133 mg/dL (50-199) 01/03/19 04:48 LDL Cholesterol Direct 84 mg/dL (50-130) 01/03/19 04:48 HDL Cholesterol 46 mg/dL (40-59) 01/03/19 04:48 Cholesterol/HDL Ratio 2.89 % 01/03/19 04:48 Urine Color Straw (Yellow) 01/02/19 20:49 Urine Turbidity Clear (Clear) 01/02/19 20:49 Urine pH 6.0 (5.0-7.0) 01/02/19 20:49 Ur Specific [place] 1.009 (1.003-1.030) 01/02/19 20:49 Urine Protein <15 mg/dl mg/dL (Negative) 01/02/19 20:49 Urine Glucose (UA) Neg mg/dL (Negative) 01/02/19 20:49 Urine Ketones Neg mg/dL (Negative) 01/02/19 20:49 Urine Blood Neg (Negative) 01/02/19 20:49 Urine Nitrite Neg (Negative) 01/02/19 20:49 Urine Bilirubin Neg (Negative) 01/02/19 20:49 Urine Urobilinogen < 2.0 mg/dL (<2.0) 01/02/19 20:49 Ur Leukocyte Esterase Neg (Negative) 01/02/19 20:49 Urine WBC (Auto) < 1.0 /HPF (0.0-6.0) 01/02/19 20:49 Urine RBC (Auto) < 1.0 /HPF (0.0-6.0) 01/02/19 20:49 Phenytoin 4.1 ug/mL (10.0-20.0) L 01/02/19 22:47
[2019-01-03] MEDS ORDERED: KEPPRA 1,000 MG/NS 0.75% 100ML 1,000 MG/100 ML BAG IV SCH (12:00)
[2019-01-03] MEDS: ATIVAN IV PRN ×3 (12:00→21:40)
--- NOTE | 2019-01-03 17:28 | Consultation ---
History of Present Illness Consult date: 01/03/19 Chief complaint: seizure History of present illness: This is a 68 YO M with known seizure disorder who presented to the ED with breakthru seizure. Pt says he is usually compliant with his medications for seizure but on the evening prior to admission he forget the night time doses. He is back to baseline now without complaints. Past History Past Medical History: diabetes, hypertension, seizures, other (SDH) Past Surgical History: hernia repair Social history: Family history: hypertension Medications and Allergies Allergies Allergy/AdvReac Type Severity Reaction Status Date / Time No Known Allergies Allergy Unverified 05/22/17 17:50 Home Medications Medication Instructions Recorded Confirmed Last Taken Type glipiZIDE [Glipizide] 10 mg PO BID 11/11/17 01/02/19 Unknown History traMADol [Ultram] 50 mg PO TID 11/11/17 01/02/19 Unknown History Ibuprofen 1 tab PO Q8HR PRN 01/02/19 01/02/19 Unknown History Bimatoprost [Lumigan 0.01%] 1 drop OS HS 01/03/19 01/03/19 01/01/19 21:00 History Brimonidine Tartrate [Brimonidine 1 drop OU TID 01/03/19 01/03/19 01/02/19 11:00 History Tartrate 0.2%] Empagliflozin [Jardiance] 10 mg PO AC 01/03/19 01/03/19 Unknown History Latanoprost 0.005% 1 drop OS HS 01/03/19 01/03/19 01/01/19 21:00 History Metformin HCl [Glucophage] 1,000 mg PO BID 01/03/19 01/03/19 01/02/19 18:00 History Metoprolol [Lopressor TAB] 50 mg PO BID 01/03/19 01/03/19 01/02/19 17:00 History Phenytoin [Dilantin] 200 mg PO QHS 01/03/19 01/03/19 Unknown History Pravastatin [Pravachol] 40 mg PO DAILY 01/03/19 01/03/19 01/02/19 10:00 History levETIRAcetam [Keppra TAB] 1,500 mg PO BID 01/03/19 01/03/19 01/02/19 21:00 History Active Meds: Active Medications Dextrose/Sodium Chloride (D5/0.45ns) 1,000 mls @ 75 mls/hr IV DIRECT EVERT Levetiracetam (Keppra 1,000 Mg/Ns 0.75% 100ml) 1,000 mg in 100 mls @ 400 mls/hr IV Q12HR EVERT Last Admin: 01/03/19 14:02 Dose: 400 mls/hr Documented by: Lorazepam (Ativan) 1 mg IV Q4H PRN PRN Reason: Seizures Last Admin: 01/03/19 12:00 Dose: 1 mg Documented by: Ondansetron HCl (Zofran) 4 mg IV Q4H PRN PRN Reason: Nausea And Vomiting Pravastatin Sodium (Pravachol) 40 mg PO DAILY [facility] Sodium Chloride (Sodium Chloride Flush Syringe 10 Ml) 10 ml IV PRN PRN PRN Reason: LINE FLUSH Review of Systems Neurological: seizures Physical Examination - Vital Signs Vital Signs: Vital Signs Pulse Resp BP Pulse Ox 65 13 128/58 95 01/02/19 16:29 01/02/19 16:29 01/02/19 16:29 01/02/19 16:29 - Constitutional General appearance: comfortable - EENT EENT: Present: PERRL, mucous membranes moist - Respiratory Respiratory: Present: lungs clear - Cardiovascular Cardiovascular: Present: regular rate - Gastrointestinal Gastrointestinal: Present: normoactive bowel sounds - Integumentary Integumentary: Present: normal - Neurologic Cranial nerve examination: anosmic, EOMI, VFF, V1/V2/V3 grossly intact, face symmetric, tongue midline Motor examination - right side: 5/5: biceps, triceps, wrist flexion, wrist extension, scientific illustrator, hip flexors, knee extensors, dorsiflexion, toe extension (EHL), plantarflexion Motor examination - left side: 5/5: biceps, triceps, wrist flexion, wrist extension, scientific illustrator, hip flexors, knee extensors, dorsiflexion, toe extension (EHL), plantarflexion Reflexes: 1+: ankle, bicep, knee, tricep - Assessment Assessment Interval: Baseline - Level of Consciousness 1a. Level of Consciousness: alert/keenly responsive - LOC Questions 1b. LOC Questions: aphasic - LOC Command 1c. LOC Commands: performs 1 task correctly - Best Gaze 2. Best Gaze: normal - Visual 3. Visual: partial hemianopia - Facial Palsy 4. Facial Palsy: partial paralysis - Motor Arm 5b. Motor Arm Right: no movement - Motor Leg 6a. Motor Leg Left: drift - Limb Ataxia 7. Limb Ataxia: absent - Sensory 8. Sensory: normal - Best Language 9. Best Language: mute/global aphasia - Dysarthria 10. Dysarthria: mute/anarrthric - Extinction and Inattention 11. Extinction/Inattention: no abnormality Results - Laboratory Findings CBC and BMP: 01/02/19 20:31 01/02/19 20:31 Abnormal Lab Findings: Abnormal Labs 01/02/19 01/02/19 01/02/19 20:10 20:31 20:31 MCHC 35 H Plt Count 133 L Eos % (Auto) 14.3 H Eos # 0.7 H Sodium 133 L Chloride 97.5 L BUN 23 H Glucose 195 H POC Glucose 148 H Phenytoin 01/02/19 01/02/19 01/03/19 22:06 22:47 11:56 MCHC Plt Count Eos % (Auto) Eos # Sodium Chloride BUN Glucose POC Glucose 194 H 152 H Phenytoin 4.1 L 01/03/19 16:07 MCHC Plt Count Eos % (Auto) Eos # Sodium Chloride BUN Glucose POC Glucose 244 H Phenytoin - Diagnostic Findings Additional findings: MRI Brain nothing acute, chronic left parietal stroke Assessment and Plan This is a 68 YO M with breakthru seizure secondary to noncompliance. Recommend: Continue Keppra and Dilantin at home doses. Pt says he also take topiramate for headache/seizure but he does not know the dose. Will give a follow up dose of Dilantin now to get level in the therapeutic range. Reviewed [place] law regarding seizures and driving MRI Brain reviewed. No further recommendations. fine for home from a neuro standpoint with close outpatient neuro followup.
[2019-01-03] MEDS ORDERED: DILANTIN PO ONE (17:30)
[2019-01-03] MEDS: KEPPRA PO SCH (21:40)
[2019-01-04 04:55] VITALS: BP 117/77
[2019-01-04] MEDS: KEPPRA PO SCH ×2 (06:02→09:52)
[2019-01-04] MEDS ORDERED: PRAVACHOL PO SCH (10:00)
--- NOTE | 2019-01-04 10:40 | Discharge Summary ---
Providers - Providers Date of Admission: 01/02/19 22:59 Date of discharge: 01/04/19 Attending physician: MADHURI VAZQUEZ 01/02/19 23:13 Occupational Therapy Evaluate and Treat [CONS] Routine Comment: Reason For Exam: Neuro deficits Physical Therapy Evaluation and Treat [CONS] Routine Comment: Reason For Exam: Neuro deficits 01/03/19 05:28 Consult to Physician [CONS] Routine Comment: Consulting Provider: HOMERO GUILLAUME Physician Instructions: Reason For Exam: cva Primary care physician: ANILA MUNOZ Hospitalization Condition: Stable Pertinent studies: CT head MRI brain Hospital course: HPI: History of present illness: 68 year old man with a 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 In the emergency room he had a seizure, IV At jasmin and Keppra was given, he still sedated. History is per the at bedside. Review of system is unobtainable Hospital course: Mr Borden was admitted initially for suspected CVA but workup was negative and was diagnosed with breakthrough seizures. Managed with IV and then oral Keppra 1500mg bid. Seen in consultation by the Neurology team. Patient advised not to drive until 6 months seizure free and if cleared by his Neurologist at [facility]. Patient should not be alone in any pool of water because of the risk of drowning in the event of a seizure. Counseled extensively about need for medication/AED compliance, Need to follow up with his PCP and Neurology in 1-2 weeks. Counseled to return if worsening symptoms. Patient was AO x 3 and voiced understanding to my d/w him. Disposition: - TO HOME OR SELFCARE Time spent for discharge: more than 35 mins - Discharge Diagnoses (1) Seizure Status: Chronic Comment: Presented with breakthrough seizures. continue AED, no driving until 6 months seizure free, No operation of heavy machinery until 6 month seizure free. (2) HTN (hypertension) Status: Chronic Comment: continue your BP pills and monitor BP closely (3) Diabetes mellitus Status: Chronic Qualifiers: Diabetes mellitus type: type 2 Comment: continue metformin and Glipizide (4) H/O: stroke Status: Chronic Comment: continue home medications Core Measure Documentation - Palliative Care Palliative Care/ Comfort Measures: Not Applicable - Core Measures Any of the following diagnoses?: none Exam - Constitutional Vitals: Temp Pulse Resp BP Pulse Ox 98.0 F 94 H 18 117/77 99 01/04/19 08:36 01/04/19 04:10 01/04/19 10:00 01/04/19 04:10 01/04/19 04:10 General appearance: Present: no acute distress, well-nourished - EENT Eyes: Present: PERRL ENT: hearing intact, clear oral mucosa, dentition normal - Neck Neck: Present: supple - Respiratory Respiratory: bilateral: CTA, negative: diminished, rales, rhonchi, wheezing - Cardiovascular Rhythm: regular Heart Sounds: Present: S1 & S2 - Extremities Extremities: pulses intact, pulses symmetrical, normal temperature, normal color - Abdominal General gastrointestinal: Present: soft, non-tender, non-distended, normal bowel sounds Male genitourinary: Present: deferred - Rectal Rectal Exam: deferred - Integumentary Integumentary: Present: clear, warm, dry - Musculoskeletal Musculoskeletal: strength equal bilaterally - Psychiatric Psychiatric: appropriate mood/affect, intact judgment & insight, memory intact, cooperative - Neurologic Neurologic: CNII-XII intact, moves all extremities - Allied Health Allied health notes reviewed: nursing, social work, case management Plan Activity: fall precautions Weight Bearing Status: Weight Bear as Tolerated Diet: low fat, low cholesterol, low salt, diabetic Special Instructions: record daily weights, record daily BP diary, record blood sugar diary Follow up with: ANILA MUNOZ MD [Primary Care Provider] - 3-5 Days Prescriptions: RX: Phenytoin [Dilantin] 300 mg PO QHS #30 capsule.er RX: levETIRAcetam [Keppra TAB] 1,500 mg PO BID #60 tablet RX: Pravastatin [Pravachol] 40 mg PO DAILY #30 tablet
== END 2019-01-04 11:52 | disposition home or self-care (01) | DRG 101 ==
LOC: ED 20:06 → 4A 22:59
PROVIDERS: ADMIT Internal Medicine; ATTEND Family Medicine
DX: G40.901 Epilepsy, unspecified, not intractable, with status epilepticus (principal); R47.01 Aphasia; I10 Essential (primary) hypertension; M19.90 Unspecified osteoarthritis, unspecified site; E11.9 Type 2 diabetes mellitus without complications; Z82.49 Family history of ischemic heart disease and other diseases of the circulatory system; Z79.899 Other long term (current) drug therapy; Z86.73 Personal history of transient ischemic attack (TIA), and cerebral infarction without residual deficits; Z91.19 Patient's noncompliance with other medical treatment and regimen
CPT/HCPCS: 36415; 70450; 70496; 70498; 70551; 80048; 80061; 80185; 81001; 82962; 84484; 85025; 85610; 85670; 85730; 93005; 93010; 93306; 96365; 96375; G0378; A9270-GY; J1953; J2060; Q9967

== ENCOUNTER 2022-02-23 16:01 | Emergency (ER) | payer MEDICARE, OTHER ==
[2022-02-23] MEDS ORDERED: LORazepam 2 MG/ML VIAL ONE (16:24)
[2022-02-23] MEDS ORDERED: SODIUM CHLORIDE 0.9% 1000 ML 1,000 ML ONE (16:28)
[2022-02-23] MEDS ORDERED: SODIUM CHLORIDE 0.9% 1000 ML 1,000 ML IV ONE (16:37)
[2022-02-23] MEDS ORDERED: levETIRAcetam 1000 MG/NS 0.75% 1,000 MG/100 ML BAG IV ONE (16:38)
[2022-02-23] MEDS ORDERED: LORazepam 2 MG/ML VIAL IV ONE (16:41)
--- NOTE | 2022-02-23 17:11 | XRay Report ---
CHEST 1 VIEW 02/23/2022 4:46 PM INDICATION / CLINICAL INFORMATION: Altered Mental Status. COMPARISON: 11/11/17. FINDINGS: SUPPORT DEVICES: None. HEART / MEDIASTINUM: The heart size and pulmonary vasculature are normal. The aorta is normal in marli terry. LUNGS / PLEURA: No significant pulmonary or pleural abnormality. No pneumothorax. ADDITIONAL FINDINGS: No significant additional findings. IMPRESSION: No acute abnormality or significant change. Signer Name: David Hassan MD Signed: 02/23/2022 5:07 PM Workstation Name: [id number]
[2022-02-23 17:34] LABS: INR 1.07 (0.87-1.13)
--- NOTE | 2022-02-23 18:01 | Cat Scan Report ---
CT BRAIN: 02/23/2022 INDICATION / CLINICAL INFORMATION: Altered Mental Status. COMPARISON: CT brain 01/02/2019 FINDINGS: BRAIN/INTRACRANIAL STRUCTURES: Unenhanced CT images of the brain demonstrate no evidence of acute abn ormality. Ventricles and sulci are prominent in size, consistent with prominent diffuse cerebral atrophy. There is been prior large left craniotomy. Some dural thickening is located beneath the craniotomy si te, which has a chronic appearance. There is been no change when compared to the prior exam from 01/02. EXTRACRANIAL STRUCTURES: There is evidence of soft tissue thickening or hemorrhage in the dorsal aspe ct of the left globe, consistent with prior ocular surgery or retinal detachment. IMPRESSION: Postoperative change. Prominent diffuse cerebral atrophy. No evidence of acute abnormality. All CT scans at this location are performed using dose reduction to ALARA by means of automated expos ure control. Signer Name: Sanjay Ga MD Signed: 02/23/2022 5:57 PM Workstation Name: [id number]
[2022-02-23 18:22] LABS: Alanine Aminotransferase 53 units/L (7-56); BUN/Creatinine Ratio 12; Blood Urea Nitrogen 15 mg/dL (9-20); Calcium 9.2 mg/dL (8.4-10.2); Hemolysis Index 19
--- NOTE | 2022-02-23 20:10 | Emergency Department Report ---
ED General Adult HPI - General Chief complaint: Altered Mental Status Stated complaint: ALTERED MENTAL STATUS Time Seen by Provider: 02/23/22 16:37 Source: family, EMS Mode of arrival: Stretcher Limitations: Altered Mental Status - History of Present Illness Initial comments: PT ARRIVING FROM HOME FOR POSSIBLE SEIZURE. [facility] REPOR[facility] NOT RESPONSIVE TO COMM ANDS, DIAPHORETIC. HX OF SUBDURAL BLEED X2 YEARS AGO. BLIND L EYE. 71 years old with history of subdural bleed, recent surgery , had seizure since then on keppra 750 BID , had a seizure while in ER ativan given , can protect his airway -: Sudden, hour(s) Radiation: non-radiation Severity scale (0 -10): 0 Associated Symptoms: confusion, headaches, seizure. denies: denies other symptoms, malaise, nausea/vomiting, rash - Related Data Home Medications Medication Instructions Recorded Confirmed Last Taken glipiZIDE [Glipizide] 10 mg PO BID 11/11/17 01/02/19 Unknown traMADoL [Ultram 50 MG tab] 50 mg PO TID PRN 11/11/17 02/23/22 Unknown Ibuprofen [Ibuprofen 800] 1 tab PO Q8HR PRN 01/02/19 01/02/19 Unknown Bimatoprost [Lumigan 0.01%] 1 drop OS HS 01/03/19 02/23/22 01/01/19 21:00 Brimonidine Tartrate [Brimonidine 1 drop OU TID 01/03/19 01/03/19 01/02/19 11:00 Tartrate 0.2%] Empagliflozin [Jardiance] 10 mg PO AC 01/03/19 01/03/19 Unknown Latanoprost 0.005% 1 drop OS HS 01/03/19 02/23/22 01/01/19 21:00 Metformin HCl [Glucophage] 1,000 mg PO BID 01/03/19 01/03/19 01/02/19 18:00 Metoprolol [Lopressor TAB] 50 mg PO BID 01/03/19 01/03/19 01/02/19 17:00 Dorzolamide HCl/Timolol Maleat 10 ml OP BID 02/23/22 02/23/22 Unknown [Dorzolamide-Timolol Eye Drops] Previous Rx's Medication Instructions Recorded Last Taken Type Phenytoin [Dilantin] 300 mg PO QHS #30 capsule.er 01/04/19 Unknown Rx Pravastatin [Pravachol] 40 mg PO DAILY #30 tablet 01/04/19 Unknown Rx levETIRAcetam [Keppra TAB] 1,500 mg PO BID #60 tablet 01/04/19 Unknown Rx Allergies Allergy/AdvReac Type Severity Reaction Status Date / Time No Known Allergies Allergy Verified 02/23/22 16:18 ED Review of Systems ROS: Stated complaint: ALTERED MENTAL STATUS Other details as noted in HPI Constitutional: denies: chills, fever Eyes: denies: eye pain, eye discharge, vision change ENT: denies: ear pain, throat pain Respiratory: denies: cough, shortness of breath, wheezing Cardiovascular: denies: chest pain, palpitations Endocrine: no symptoms reported Gastrointestinal: denies: abdominal pain, nausea, diarrhea Genitourinary: denies: urgency, dysuria Musculoskeletal: denies: back pain, joint swelling, arthralgia Skin: denies: rash, lesions Neurological: denies: headache, weakness, paresthesias Psychiatric: denies: anxiety, depression Hematological/Lymphatic: denies: easy bleeding, easy bruising ED Past Medical Hx - Past Medical History Hx Hypertension: Yes Hx CVA: Yes Hx Congestive Heart Failure: No Hx Diabetes: Yes Hx Arthritis: Yes Hx Seizures: Yes Hx Asthma: No Hx COPD: No - Surgical History Additional Surgical History: Right inquinal hernia repair - Social History Smoking Status: Unknown if ever smoked - Medications Home Medications: Home Medications Medication Instructions Recorded Confirmed Last Taken Type glipiZIDE [Glipizide] 10 mg PO BID 11/11/17 01/02/19 Unknown History traMADoL [Ultram 50 MG tab] 50 mg PO TID PRN 11/11/17 02/23/22 Unknown History Ibuprofen [Ibuprofen 800] 1 tab PO Q8HR PRN 01/02/19 01/02/19 Unknown History Bimatoprost [Lumigan 0.01%] 1 drop OS HS 01/03/19 02/23/22 01/01/19 21:00 History Brimonidine Tartrate [Brimonidine 1 drop OU TID 01/03/19 01/03/19 01/02/19 11:00 History Tartrate 0.2%] Empagliflozin [Jardiance] 10 mg PO AC 01/03/19 01/03/19 Unknown History Latanoprost 0.005% 1 drop OS HS 01/03/19 02/23/22 01/01/19 21:00 History Metformin HCl [Glucophage] 1,000 mg PO BID 01/03/19 01/03/19 01/02/19 18:00 History Metoprolol [Lopressor TAB] 50 mg PO BID 01/03/19 01/03/19 01/02/19 17:00 History Phenytoin [Dilantin] 300 mg PO QHS #30 capsule.er 01/04/19 02/23/22 Unknown Rx Pravastatin [Pravachol] 40 mg PO DAILY #30 tablet 01/04/19 Unknown Rx levETIRAcetam [Keppra TAB] 1,500 mg PO BID #60 tablet 01/04/19 02/23/22 Unknown Rx Dorzolamide HCl/Timolol Maleat 10 ml OP BID 02/23/22 02/23/22 Unknown History [Dorzolamide-Timolol Eye Drops] ED Physical Exam - General Limitations: Altered Mental Status General appearance: postictal - Head Head exam: Present: normocephalic - Eye Eye exam: Present: normal appearance, other (left blond eye ) - ENT ENT exam: Present: mucous membranes moist - Neck Neck exam: Present: normal inspection - Respiratory Respiratory exam: Present: normal lung sounds bilaterally. Absent: respiratory distress - Cardiovascular Cardiovascular Exam: Present: regular rate, normal rhythm. Absent: systolic murmur, diastolic murmur, rubs, gallop - GI/Abdominal GI/Abdominal exam: Present: soft, normal bowel sounds - Rectal Rectal exam: Present: deferred - Extremities Exam Extremities exam: Present: normal inspection - Back Exam Back exam: Present: normal inspection - Expanded Neurological Exam Expanded Best Eye Response ([place]): (2) open to pain Best Motor Response ([place]): (6) obeys commands [place] Total: 8 - Psychiatric Psychiatric exam: Present: normal affect, normal mood - Skin Skin exam: Present: warm, dry, intact, normal color. Absent: rash ED Course Vital Signs 02/23/22 02/23/22 02/23/22 18:08 18:10 18:46 Pulse Rate 114 H 117 H Respiratory 20 18 Rate Blood Pressure 143/80 Blood Pressure 143/80 [Left] O2 Sat by Pulse 96 96 97 Oximetry ED Medical Decision Making - Lab Data Result diagrams: 02/23/22 16:52 - EKG Data EKG shows normal: sinus rhythm Rate: tachycardia - EKG Data Interpretation: nonspecific ST-T wave michelle - Radiology Data Radiology results: report reviewed, image reviewed - Medical Decision Making work up showed acidosis and elevated lectic acid , most liely 2ry to seizure keppra loaded, ativan given , back to [facility] Critical care attestation.: If time is entered above; I have spent that time in minutes in the direct care of this critically ill patient, excluding procedure time. ED Disposition Clinical Impression: Seizure, HTN (hypertension) Disposition: HOME / SELF CARE / HOMELESS Is pt being admited?: No Does the pt Need Aspirin: No Condition: Stable Instructions: Hypertension (ED), Seizure, Adult, [id number] Referrals: PRIMARY CARE, [Primary Care Provider] - 3-5 Days
[2022-02-23 20:37] LABS: Alanine Aminotransferase 49 units/L (7-56); Albumin 4.6 g/dL (3.9-5); BUN/Creatinine Ratio 18; Blood Urea Nitrogen 16 mg/dL (9-20); Calcium 8.5 mg/dL (8.4-10.2); Hemolysis Index 13
[2022-02-23 21:25] LABS: Hematocrit 39.2 % (35.5-45.6); Hemoglobin 13.6 gm/dl (11.8-15.2); Mean Corpuscular HGB Conc 35 % (32-34); Mean Corpuscular Volume 92 fl (84-94); Red Blood Count 4.26 M/mm3 (3.65-5.03); Red Cell Distribution Width 12.9 % (13.2-15.2)
[2022-02-23 21:46] LABS: Platelet Count 95 K/mm3 (140-440)
[2022-02-23 22:12] VITALS: BP 164/92
[2022-02-23 22:33] LABS: Basophils % (Manual) 0 % (0.0-1.8); Total Cells Counted 100
[2022-02-23 22:34] LABS: Eosinophils % (Manual) 0 % (0.0-4.3); RBC Morphology Normal
--- NOTE | 2022-02-24 10:33 | Electrocardiograph Report ---
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
== END 2022-02-23 23:50 | disposition home or self-care (01) ==
LOC: ED 16:01
DX: G40.909 Epilepsy, unspecified, not intractable, without status epilepticus (principal); I10 Essential (primary) hypertension; E11.9 Type 2 diabetes mellitus without complications
CPT/HCPCS: 70450; 71045; 80053; 82140; 82550; 84484; 85007; 85025; 85610; 93005; 96365; 96375; 99285; J1953; J2060; J7030; 80320; G0480